=== PATIENT | male | born 1960 | race Caucasian/White ===

== ENCOUNTER 2017-12-15 06:52 | Day surgery (SDC) ==
[2017-12-15] MEDS ORDERED: LIDOCAINE 1% 20 ML MDV ID STA (07:22)
[2017-12-15] MEDS ORDERED: DIPRIVAN 20 ML VIAL IVP ONE (08:49)
[2017-12-15 15:04] VITALS: BP 123/56; TEMP 98.6
--- NOTE | 2017-12-16 10:40 | OP ---
PROCEDURE: COLONOSCOPY TO THE CECUM WITH SNARE POLYPECTOMY. ENDOSCOPIST: Ashu CARDENAS M.D. INDICATION: SCREENING. NO PREVIOUS EXAM INSTRUMENT: [id number]. MEDICATION: PER ANESTHESIA. PROCEDURE: The patient was positioned for colonoscopy. The digital rectal exam was negative. The colonoscope was inserted through the anus and advanced to the cecum. The cecum was identified using the ileocecal valve and the appendiceal orifice as landmarks. The scope was slowly withdrawn through an adequately prepped colon. The Momence Bowel Prep Score equals 9. In cecal pit a 3mm polyp removed using cold snare polypectomy. Scattered diverticulosis throughout the colon. Within the rectum a 5mm polyp was removed using snare cautery. The retroflex exam reveal hemorrhoids. No other abnormalities were noted. The patient tolerated the procedure well without immediate complications. Withdraw time 13 minutes. PLAN: 1. Repeat colonoscopy in 5 years CC: Dr. Nikita AYOUB
== END 2017-12-15 10:00 | disposition home or self-care (01) ==
LOC: SURG 06:52
PROVIDERS: ATTEND Internal Medicine Gastroenterology
DX: K63.5 Polyp of colon (principal)